=== PATIENT | female | born 1950 | race Caucasian/White ===

== ENCOUNTER 2019-10-19 22:10 | Emergency (ER) | payer OTHER, SELFPAY ==
[~2019-10-19] VITALS: Ht 170.2 cm; Wt 97.5 kg
[2019-10-19 22:16] VITALS: Ht 170.2 cm; Wt 97.5 kg
[2019-10-19 23:15] VITALS: BP 136/82
== END 2019-10-19 23:15 | disposition home or self-care (01) ==
LOC: ED 22:10
DX: J01.90 Acute sinusitis, unspecified (principal); J44.9 Chronic obstructive pulmonary disease, unspecified; F17.210 Nicotine dependence, cigarettes, uncomplicated
CPT/HCPCS: 99406; U0003-CS